=== PATIENT | female | born 1995 | race African-American/Black ===

== ENCOUNTER 2017-09-04 05:27 | Inpatient (IN) ==
[2017-09-04] MEDS ORDERED: ONDANSETRON 4 MG/2 ML VIAL IV PRN ×2 (05:50→14:14)
[2017-09-04] MEDS: MEPERIDINE 50 MG/1 ML VIAL IV PRN ×2 (05:59→08:32)
[2017-09-04 06:27] LABS: Basophils % 0.2 % (0.0-0.8); Eosinophils % 0.2 % (0.00-10.9); Hematocrit 26.3 VOL% (35.7-47.0); Hemoglobin 7.6 GM/DL (12.0-16.0); Immature Granulocytes % 0.6 %; Immature Granulocytes Absolute 0.06 #; Lymphocytes # 3.3 10*3/uL (1.4-4.0); Lymphocytes % 32.8 % (21.3-54.2); Mean Corpuscular HGB Conc 28.9 GM/DL (32-36); Mean Corpuscular Hemoglobin 20 PG (27-34); Mean Corpuscular Volume 68.5 FL (87-102); Mean Platelet Volume 9.6 FL (9.6-12.0); Monocytes # 0.8 10*3/uL (0.11-0.8); Monocytes % 8.3 % (1.7-12.7); Neutrophils # 5.9 10*3/uL (1.4-7.4); Neutrophils % 57.9 % (38.7-73.9); Platelet Count 226 T/CUMM (130-400); Red Blood Count 3.84 MC/CUMM (3.8-5.5); Red Cell Distribution Width 17.2 % (9.3-17.3); White Blood Count 10.1 T/CUMM (4-12)
[2017-09-04] MEDS ORDERED: LACTATED RINGERS 1,000 ML IV SCH ×2 (06:30→08:30)
[2017-09-04 06:57] LABS: Alanine Aminotransferase 12 U/L (13-56); Alkaline Phosphatase 70 U/L (45-117); Aspartate Amino Transferase 21 U/L (0-37); Bilirubin,Total < 0.39 MG/DL (0.2-1.0); Blood Urea Nitrogen 3 MG/DL (7-18); Calcium 8.4 MG/DL (8.5-10.1); Glucose 82 MG/DL (74-106); Osmolality,Calculated 268.8 MOS/KG (273-304); Sodium 137 MMOL/L (136-145); Total Protein 7.5 G/DL (6.4-8.3)
[2017-09-04 07:00] LABS: Anisocytosis 1+; Poikilocytosis 1+
[2017-09-04 07:01] LABS: Polychromasia Slight
[2017-09-04] MEDS: LORazepam 2 MG/1 ML VIAL IV PRN ×3 (08:00→20:39)
[2017-09-04] MEDS ORDERED: LACTATED RINGERS 1,000 ML IV ONE (08:10)
[2017-09-04] MEDS ORDERED: ePHEDrine 50 MG/ML AMP IV PRN (08:10)
[2017-09-04] MEDS ORDERED: diphenhydrAMINE 50 MG/1 ML VIAL IV PRN ×2 (08:10)
[2017-09-04] MEDS ORDERED: CITRIC ACID/SODIUM CITRATE 30 ML UDCUP PO ONE (08:10)
[2017-09-04] MEDS ORDERED: hydrOXYzine HCL 25 MG/1 ML VIAL IM PRN (08:10)
[2017-09-04] MEDS ORDERED: FAMOTIDINE 20 MG/2 ML VIAL IV ONE (08:10)
[2017-09-04] MEDS ORDERED: fentaNYL 2 MCG/ROPIV 0.2% EPID 150 ML EPIDURAL SCH (08:30)
[2017-09-04] MEDS ORDERED: OXYTOCIN/LR 20 UNIT/1,000 ML BAG IV SCH (10:00)
[2017-09-04] MEDS ORDERED: miSOPROStol 200 MCG TABLET RECTAL ONE (11:39)
[2017-09-04] MEDS ORDERED: miSOPROStol 200 MCG TABLET PO ONE (12:01)
[2017-09-04] MEDS ORDERED: BISACODYL 10 MG SUPP RECTAL PRN (14:14)
[2017-09-04] MEDS ORDERED: WITCH HAZEL PADS 100/JAR TOP PRN (14:14)
[2017-09-04] MEDS ORDERED: MEASLES/MUMPS/RUBELLA VACCINE 0.5 ML VIAL SUBCUT ONE (14:14)
[2017-09-04] MEDS ORDERED: DIPH/TET/ACEL PERT BOOSTER VACCINE 0.5 ML VIAL IM ONE (14:14)
[2017-09-04] MEDS ORDERED: HYDROCORTISONE 2.5% RECTAL CREAM 30 GM TUBE TOP PRN (14:14)
[2017-09-04] MEDS ORDERED: BENZOCAINE 20%/MENTHOL 0.5% SPRAY 56 GM CAN TOP PRN (14:14)
[2017-09-04] MEDS ORDERED: oxyCODONE/ACETAMINOPHEN 5-325 MG TABLET PO PRN ×2 (14:14)
[2017-09-04] MEDS ORDERED: LANOLIN 50% CREAM 0.3 OZ TUBE TOP PRN (14:14)
[2017-09-04] MEDS ORDERED: RHO(D) IMMUNE GLOBULIN 300 MCG SYRINGE IM ONE (14:14)
[2017-09-04] MEDS ORDERED: OXYTOCIN/LR 20 UNIT/1,000 ML BAG IV ONE (14:14)
[2017-09-04] MEDS ORDERED: IBUPROFEN 800 MG TABLET PO PRN (14:14)
[2017-09-04] MEDS ORDERED: ACETAMINOPHEN 325 MG TABLET PO PRN (14:14)
[2017-09-04] MEDS: DOCUSATE SODIUM 100 MG CAPSULE PO SCH (23:02)
[2017-09-05 08:12] LABS: Basophils % 0.1 % (0.0-0.8); Eosinophils % 0.4 % (0.00-10.9); Hematocrit 19.5 VOL% (35.7-47.0); Immature Granulocytes % 0.8 %; Immature Granulocytes Absolute 0.08 #; Lymphocytes % 20.2 % (21.3-54.2); Mean Corpuscular HGB Conc 29.7 GM/DL (32-36); Mean Corpuscular Hemoglobin 20 PG (27-34); Mean Corpuscular Volume 67.5 FL (87-102); Mean Platelet Volume 10.3 FL (9.6-12.0); Monocytes # 0.6 10*3/uL (0.11-0.8); Monocytes % 5.8 % (1.7-12.7); Neutrophils # 7.2 10*3/uL (1.4-7.4); Neutrophils % 72.7 % (38.7-73.9); Platelet Count 211 T/CUMM (130-400); Red Blood Count 2.89 MC/CUMM (3.8-5.5); White Blood Count 9.9 T/CUMM (4-12)
[2017-09-05 08:24] LABS: Hemoglobin 5.8 GM/DL (12.0-16.0)
[2017-09-05] MEDS ORDERED: SODIUM CHLORIDE 0.9% 1,000 ML IV PRN (08:34)
[2017-09-05] MEDS ORDERED: diphenhydrAMINE CAP 50 MG CAPSULE PO ONE (08:35)
[2017-09-05] MEDS ORDERED: ACETAMINOPHEN 500 MG TABLET PO ONE (08:36)
[2017-09-05 08:49] LABS: Anisocytosis 1+; Hypochromasia 1+; Microcytosis 1+
[2017-09-05 08:50] LABS: Poikilocytosis 1+; Target Cells Few
[2017-09-05 08:51] LABS: Platelet Estimate Normal
[2017-09-05] MEDS: DOCUSATE SODIUM 100 MG CAPSULE PO SCH ×2 (09:53→22:06)
[2017-09-05] MEDS: SERTRALINE 100 MG TABLET PO SCH (09:53)
[2017-09-05] MEDS: FERROUS SULFATE 325 MG TABLET PO SCH ×3 (09:54→22:05)
[2017-09-05] MEDS: LORazepam 2 MG/1 ML VIAL IV PRN (14:57)
[2017-09-05] MEDS ORDERED: ZALEPLON 5 MG CAPSULE PO PRN (22:05)
[2017-09-06] MEDS ORDERED: diphenhydrAMINE CAP 25 MG CAPSULE PO PRN (01:40)
[2017-09-06] MEDS: FERROUS SULFATE 325 MG TABLET PO SCH ×3 (09:11→22:35)
[2017-09-06] MEDS: SERTRALINE 100 MG TABLET PO SCH (09:11)
[2017-09-06] MEDS: DOCUSATE SODIUM 100 MG CAPSULE PO SCH ×2 (09:11→22:35)
[2017-09-07 06:59] LABS: Basophils % 0.3 % (0.0-0.8); Eosinophils # 0.2 10*3/uL (0.0-0.87); Eosinophils % 1.4 % (0.00-10.9); Hematocrit 26.6 VOL% (35.7-47.0); Hemoglobin 8.4 GM/DL (12.0-16.0); Immature Granulocytes % 0.6 %; Immature Granulocytes Absolute 0.06 #; Lymphocytes # 2.6 10*3/uL (1.4-4.0); Lymphocytes % 24.1 % (21.3-54.2); Mean Corpuscular HGB Conc 31.6 GM/DL (32-36); Mean Corpuscular Hemoglobin 23 PG (27-34); Mean Corpuscular Volume 73.5 FL (87-102); Mean Platelet Volume 9.8 FL (9.6-12.0); Monocytes # 0.8 10*3/uL (0.11-0.8); Monocytes % 7.4 % (1.7-12.7); NRBC # 0.02 10*3/uL; Neutrophils % 66.2 % (38.7-73.9); Platelet Count 213 T/CUMM (130-400); Red Blood Count 3.62 MC/CUMM (3.8-5.5); Red Cell Distribution Width 19.5 % (9.3-17.3); White Blood Count 10.6 T/CUMM (4-12)
[2017-09-07] MEDS: FERROUS SULFATE 325 MG TABLET PO SCH (09:20)
[2017-09-07] MEDS: DOCUSATE SODIUM 100 MG CAPSULE PO SCH (09:20)
[2017-09-07] MEDS: SERTRALINE 100 MG TABLET PO SCH (09:20)
[2017-09-07 15:15] VITALS: BP 108/62
== END 2017-09-07 14:20 | disposition home or self-care (01) | DRG 560 ==
LOC: N.LDOUT 05:27 → N.LD 05:30 → N.OB 18:29
PROVIDERS: ADMIT Obstetrics & Gynecology; ATTEND Obstetrics & Gynecology